=== PATIENT | female | born 1985 | race Two or more races ===

== ENCOUNTER 2020-01-14 08:18 | Emergency (ER) | payer OTHER ==
[~2020-01-14] VITALS: Ht 167.6 cm; Wt 73.4 kg
--- NOTE | 2020-01-14 08:34 | NUR ---
Patient presents with rectal pain and bleeding with every bowel movement for 2 weeks.
--- NOTE | 2020-01-14 09:02 | NUR ---
Assisted Alisson with Rectal Exam. Fissures noted. Plan of care discussed. at bedside.
[2020-01-14 09:39] VITALS: BP 100/68
== END 2020-01-14 09:42 | disposition home or self-care (01) ==
LOC: ED 08:45
DX: K60.0 Acute anal fissure (principal); K64.8 Other hemorrhoids; I10 Essential (primary) hypertension
CPT/HCPCS: 99283